=== PATIENT | female | born 1980 | race Caucasian/White ===

== ENCOUNTER 2021-01-08 13:04 | Outpatient (REF) | payer OTHER, SELFPAY | END 2021-01-08 13:05 | disposition home or self-care (01) | LOC: HO.LAB 13:04 | PROVIDERS: Visit Provider Internal Medicine | DX: Z20.822 Contact with and (suspected) exposure to COVID-19 (principal) | CPT/HCPCS: 36415; C9803; U0003; U0005 ==

== ENCOUNTER 2022-04-17 08:40 | Emergency (ER) | payer OTHER, SELFPAY ==
--- NOTE | ~2022-04-17 | CT_ITS ---
CT LUMBAR SPINE WITHOUT CONTRAST CLINICAL INFORMATION: Tender lumbar vertebra. COMPARISON: None available. TECHNIQUE: Multidetector CT acquisition of the lumbar spine is obtained without contrast. This CT examination was performed using dose optimization techniques as appropriate, variously including the following: *Automated exposure control *Adjustment of mA and/or kV according to patient size (this includes techniques or standardized protocols for targeted exams where dose is matched to indication/reason for exam; i.e. extremities or head) *Use of iterative reconstruction technique FINDINGS: Transitional anatomy. 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 5 nonrib-bearing lumbar-type vertebral bodies. There are no acute fractures and there are no acute subluxations. No suspicious intraosseous lesions. Vertebral body heights are maintained. There is moderate disc volume loss at L5-S1 and the remaining disc volumes are preserved. There is skin thickening and there is subcutaneous stranding throughout the dorsal soft tissues of the lumbar spine as well as the partially imaged ventral abdominal/pelvic soft tissues which can be correlated for clinical signs of cellulitis. Imaged lung bases are clear. L1-L2, L2-L3, and L3-L4 disc contours are normal. There is no central canal stenosis and there is no foraminal stenosis at these levels. L4-L5: Small annular disc bulge and mild bilateral facet arthropathy. No central canal stenosis and no foraminal stenosis. L5-S1: Nonspecific haziness within the perineural epidural fat surrounding the traversing right S1 nerve root within the right S1 lateral recess for which a lumbar spine MRI with and without IV contrast would be helpful in further assessment. There is asymmetric soft tissue fullness within the right S1 lateral recess into the difficult to exclude a disc herniation or other pathology in this location. CT/CT lumbar spine wo con IMPRESSION: - Nonspecific haziness within the perineural epidural fat surrounding the traversing right S1 nerve root within the right S1 lateral recess for which a lumbar spine MRI with and without IV contrast would be helpful in further assessment. There is asymmetric soft tissue fullness within the right S1 lateral recess and it would be difficult to exclude a disc herniation or other pathology in this location. - There is skin thickening and there is subcutaneous stranding throughout the dorsal soft tissues of the lumbar spine as well as the partially imaged ventral abdominal/pelvic soft tissues which can be correlated for clinical signs of cellulitis.
--- NOTE | ~2022-04-17 | MR_ITS ---
MR LUMBAR SPINE WITHOUT AND WITH CONTRAST CLINICAL INFORMATION: Follow-up abnormal CT scan results. COMPARISON: Lumbar spine CT 04/17/2022. TECHNIQUE: MRI of the lumbar spine was obtained using routine sequences with and without contrast. Intravenous contrast: 7.5 mL of Gadavist. FINDINGS: Hypoplastic ribs again considered at the lowermost thoracic type vertebral body. 5 nonrib-bearing lumbar-type vertebral bodies. Moderate disc volume loss and disc desiccation at L5-S1. There is no bone marrow edema. There are no acute fractures. There are no suspicious enhancing intraosseous lesions. Dependent subcutaneous edema. Conus terminates at the L1 level. There are no significant extraspinal soft tissue findings. L1-L2: Normal L2-L3: Normal L3-L4: Normal L4-L5: Small annular disc bulge and mild bilateral facet arthropathy. No central canal stenosis and no foraminal stenosis. L5-S1: Better seen on this MRI is a shallow left paracentral disc protrusion associated with an annular fissure that contacts without compressing the traversing left S1 nerve root within the left subarticular zone. The previously seen finding adjacent to the traversing right S1 nerve root on CT corresponds to a few perineural cysts adjacent to the nerve. MR/MR lumbar spine wo/w con IMPRESSION: - Better seen on this MRI is a shallow left paracentral disc protrusion at L5-S1 associated with an annular fissure that contacts without compressing the traversing left S1 nerve root within the left subarticular zone. The previously seen finding adjacent to the traversing right S1 nerve root on the earlier lumbar spine CT corresponds to a few perineural cysts adjacent to the nerve. - Dependent subcutaneous edema.
[2022-04-17 08:52] VITALS: BP 113/66; PULSE 89; RESP 18; TEMP 36.9; O2SAT 97; BMI 25.8
--- NOTE | 2022-04-17 09:11 | ED_ITS ---
HPI - Back Pain/Injury General Chief Complaint: Back Pain/Injury Stated Complaint: back pain Time Seen by Provider: 04/17/22 09:10 Source: patient Mode of arrival: ambulatory Limitations: no limitations History of Present Illness HPI Narrative: 41 female with a past medical history of seasonal allergies, and liposuction done in [place] 2 months ago. Patient has been sleeping on her stomach because of the surgery. Two days ago her back felt weird , and yesterday morning it was hard to get up and get out of bed. Today she has severe back pain in the middle of her low back, and in her rightsided low back. She has had swelling in her low back due to the surgery, and states she feels that the swelling is increased in her low back recently. No trauma, no lifting, no twisting, prior to this back pain. Patient states she does have a history of a pinched nerve in her back and prior back pain. No pain radiating down her legs, no numbness or tingling, no leg weakness, no fevers, no saddle paresthesias, no incontinence of bowel or bladder, no urinary retention, no history of IV drug use or cancer. Patient's last menstrual period was April 08. No dysuria, hematuria, urinary frequency urgency Patient is using a lidocaine patch, but it is not helping patient states the liposuction was 360 around her abdomen and back MD elicited complaint: back pain Pertinent past history: prior back pain Onset (ago): day(s) (2) Timing: constant Severity: severe Similar Symptoms Previously: No Quality: sharp Location: lumbar spine and right lower back Radiation: none Exacerbating factors: movement and walking Relieving factors: none Treatments prior to arrival: other (lidocaine patch) Work related injury: No Related Data Previous Rx's Medication Instructions Recorded cyclobenzaprine 5 mg tablet 5 mg PO TID PRN muscle spasm #15 04/17/22 tabs ketorolac 10 mg tablet 10 mg PO Q6H 5 days #20 tabs 04/17/22 Allergies Allergy/AdvReac Type Severity Reaction Status Date / Time aspirin [ASPIRIN] Allergy Unknown FACIAL Unverified 07/25/20 16:23 SWELLING Review of Systems Constitutional: Constitutional: Denies body ache(s), Denies chills, Denies fatigue, Denies fever(s), Denies malaise and Denies weakness Eyes: Eyes: Denies diplopia Cardiovascular: Cardiovascular: Denies chest pain, Denies syncope, Denies leg edema, Denies lightheadedness, Denies Loss of Consciousness, Denies palpitations and Denies dyspnea Respiratory: Respiratory: Denies chest congestion, Denies cough and Denies dyspnea Gastrointestinal: Gastrointestinal: Denies abdominal pain, Denies hematochezia, Denies constipation, Denies fecal incontinence, Denies diarrhea, Denies nausea and Denies vomiting Genitourinary: Genitourinary: Denies hematuria, Denies urinary frequency, Denies difficulty voiding, Denies dysuria, Denies pelvic pain, Denies flank pain, Denies urinary incontinence, Denies vaginal discharge and Denies vaginal odor Musculoskeletal: Musculoskeletal: Reports back pain, Denies muscle weakness, Denies numbness and Denies tingling Integumentary/Breasts: Skin/Breast: Denies rash and Denies wounds Neurologic: Denies confusion, Denies syncope, Denies numbness, Denies Sensory deficit (Neuro), Denies tingling and Denies weakness Psychiatric: Psychiatric: Denies anxiety, Denies confusion and Denies depression Endocrine: Endocrine: Denies fatigue and Denies palpitations [facility] Past Medical History [facility] Narrative: environmental allergies liposuction Social History Social History Advance Directives: No Advance Directives Information Provided: No Physical Exam Vital Signs: Vital Signs: Last Vital Signs Temp 97.9 F 04/17/22 14:51 Pulse 82 04/17/22 14:51 Resp 16 04/17/22 14:51 BP 102/58 L 04/17/22 14:51 Pulse Ox 99 04/17/22 14:51 O2 Del Method 04/17/22 14:51 BMI result Body Mass Index 25.8 Const: General: No confusion Nutritional Appearance: well nourished Orientation/consciousness: patient oriented x3 and No confusion Limitations: no limitations Eyes: Conjunctivae: conjunctivae normal Pupils: Equal, round and reactive pupils present EOM: EOMs intact bilaterally Neck: Neck: Yes full ROM, Yes no lymphadenopathy and Yes supple Resp: Effort & Inspection: normal respiratory effort and able to speak in complete sentences Auscultation: clear to auscultation bilaterally, no crackles, no rales, no rhonchi and no wheezes Cardio: Rate: regular rate Rhythm: regular rhythm Heart sounds: S1 normal heart sound present and S2 normal heart sound present GI: Inspection: Yes normal to inspection Palpation (GI): Soft to palpation, nontender, no guarding and not rigid Percussion: Yes normal to percussion Auscultation: normal bowel sounds : General: Yes no CVA tenderness Back/Spine/Pelvis: Back: no CVA tenderness Cervical Spine: normal cervical lordosis, cervical ROM normal, No Cervical spine tenderness and No step off deformity Thoracic/Lumbar Spine: No thoracic spinal tenderness, lumbar spinal tenderness at L2, at L3 and at L4 and straight leg raise positive (L>R) Pelvis: no pain with anterior-posterior compression, no buttock tenderness and no buttock swelling Skin: Other: no ecchymosis or swelling appreciated General skin exam: no rashes or lesions noted Neuro: General: patient oriented x3, tone normal, moves all extremities, no focal motor deficits, deep tendon reflexes 2+ bilaterally and No confusion Cranial nerves: Yes Equal, round and reactive pupils present Sensory Exam: No Sensory deficit (Neuro) Deep tendon reflexes (DTR's): Right patellar reflex intensity grade: 1+ and Left patellar reflex intensity grade: 1+ Extrem: Right lower extremity: normal to inspection, full ROM and normal capillary refill Left lower extremity: normal to inspection, full ROM and normal capillary refill Psych: Appearance: grossly normal Affect: normal affect Attitude: cooperative Thought process: Normal thought process present Course Course Course Narrative: 61-year-old female with past medical history of liposuction in her abdomen and back done 2 months ago, presents with severe low back pain that started 2 days ago. Patient has had back pain in the past, and she has been sleeping on her abdomen as she has been instructed to do due to the surgery. On exam, patient is well-appearing, stable vitals, patient is tender over her lumbar vertebrae, tender on her right lumbar soft tissue, she has a positive straight leg raise, left greater than right patient has no red flag symptoms, she has a stiff gait due to pain, she has intact lower extremity strength, pulses, sensation, and patellar DTRs there is no redness, swelling, or warmth on patient's low back will get CT of lumbar spine to evaluate soft tissue, as patient is reporting increased swelling even though on my exam I do not appreciate any increased swelling, however she is tender over her lumbar spine Patient is allergic to aspirin, but as tolerated ibuprofen, will treat pain with ketorolac and Flexeril while we are awaiting CT results Reevaluation(s) Reevaluation #1: urine is negative, no hematuria, patient has high specific gravity, not CT/CT lumbar spine wo con IMPRESSION: - Nonspecific haziness within the perineural epidural fat surrounding the traversing right S1 nerve root within the right S1 lateral recess for which a lumbar spine MRI with and without IV contrast would be helpful in further assessment. There is asymmetric soft tissue fullness within the right S1 lateral recess and it would be difficult to exclude a disc herniation or other pathology in this location. ? - There is skin thickening and there is subcutaneous stranding throughout the dorsal soft tissues of the lumbar spine as well as the partially imaged ventral abdominal/pelvic soft tissues which can be correlated for clinical signs of cellulitis. given CT reading of nonspecific haziness in the perineural epidural fat surrounding the right S1 nerve root and right S1 lateral recess with asymmetric soft tissue fullness in right S1 lateral recess, question abscess versus disc herniation. Discussed with Dr Dominguez, will order an MR with and without contrast, will get labs and ESR. CT scan also mentions skin thickening and subcutaneous stranding throughout dorsal soft tissues of lumbar spine and the partially imaged ventral abdominal soft tissues. No signs of cellulitis on patient's abdomen or back, no redness, swelling, warmth, I assume this skin thickening and subcutaneous stranding is due to prior liposuction 360 Reevaluation #2: patient is COVID negative, labs are unremarkable, ESR is 2. Awaiting MRI MR/MR lumbar spine wo/w con IMPRESSION: - Better seen on this MRI is a shallow left paracentral disc protrusion at L5-S1 associated with an annular fissure that contacts without compressing the traversing left S1 nerve root within the left subarticular zone. The previously seen finding adjacent to the traversing right S1 nerve root on the earlier lumbar spine CT corresponds to a few perineural cysts adjacent to the nerve. - Dependent subcutaneous edema. MRI shows no abscess. Shows left disc protrusion and perineural cysts will treat back pain with Flexeril and ketorolac, have patient follow-up with [facility] medicine counseled patient to return to emergency room if she had sudden leg weakness, saddle paresthesias, incontinence of bowel or bladder, urinary retention, or fevers MDM - Back Pain/Injury Lab Data Result diagrams: 04/17/22 11:47 04/17/22 11:47 Labs: Lab Results 04/17/22 04/17/22 04/17/22 Range/Units 09:48 09:48 11:47 WBC 5.4 (4.8-10.8) X10*3/uL RBC 5.05 (4.20-5.50) X10*6/uL Hgb 14.7 (12.0-16.0) g/dl Hct 46.3 (37.0-47.0) % MCV 91.7 (80.0-98.0) fL MCH 29.1 (27.0-33.0) pg MCHC 31.7 (31.0-35.0) g/dl RDW 13.1 (11.0-16.0) % Plt Count 211 (160-400) X10*3/uL MPV 11.4 (9.4-12.3) fL Immature Gran % (Auto) 0.2 (0.0-0.4) % Neut % (Auto) 58.1 (45-73) % Lymph % (Auto) 29.9 (20-40) % Highland % (Auto) 6.2 (2-11) % Eos % (Auto) 4.9 H (0-4) % Baso % (Auto) 0.7 (0-2) % Lymph # (Auto) 1.6 (1.2-4.9) X10*3/uL [place] # (Auto) 0.3 (0.1-1.2) X10*3/uL Eos # (Auto) 0.3 (0.0-0.4) X10*3/uL Baso # (Auto) 0.0 (0.0-0.2) X10*3/uL Abs Immat Gran (auto) 0.01 (0.00-0.03) X10*3/uL Absolute Neuts (auto) 3.1 (2.0-8.3) x10*3/uL Absolute Nucleated RBC 0.000 (0.0-0.012) X10*3/uL Nucleated RBC % (auto) 0.0 (0.0-0.2) /100WBC ESR (0-20) MM/HR Sodium (135-145) mmol/L Potassium (3.3-5.1) mmol/L Chloride (96-108) mmol/L Carbon Dioxide (22-29) mmol/L Anion Gap (12-20) BUN (9-16) mg/dL Creatinine (0.5-1.4) mg/dL Estim Creat Clear Calc Estimated GFR Random Glucose (60-115) mg/dL Calcium (8.4-10.2) mg/dL Total Bilirubin (0.0-1.0) mg/dL AST (5-31) U/L ALT (0-31) U/L Alkaline Phosphatase (39-117) U/L Total Protein (6.5-8.0) g/dL Albumin (3.5-5.0) g/dL Urine Color YELLOW Urine Appearance HAZY Urine pH 5.5 (5.0-8.0) Ur Specific [place] >= 1.030 H (1.005-1.025) Urine Protein NEG (NEG-TRACE) MG/DL Urine Glucose (UA) NEG (NEG) MG/DL Urine Ketones 5 (NEG) MG/DL Urine Blood TRACE (NEG) Urine Nitrite NEG (NEG) Ur Leukocyte Esterase NEG (NEG) Urine RBC 1-4 (0) /HPF Urine WBC 0-2 (0-4) /HPF Ur Squamous Epith Cells 4+ /LPF Amorphous Sediment 2+ /LPF Urine Bacteria TRACE /LPF Urine Test NEGATIVE (NEGATIVE) COVID-19 (JACKY) (Negative) COVID-19 Clin Com 04/17/22 04/17/22 04/17/22 Range/Units 11:47 11:47 12:30 WBC (4.8-10.8) X10*3/uL RBC (4.20-5.50) X10*6/uL Hgb (12.0-16.0) g/dl Hct (37.0-47.0) % MCV (80.0-98.0) fL MCH (27.0-33.0) pg MCHC (31.0-35.0) g/dl RDW (11.0-16.0) % Plt Count (160-400) X10*3/uL MPV (9.4-12.3) fL Immature Gran % (Auto) (0.0-0.4) % Neut % (Auto) (45-73) % Lymph % (Auto) (20-40) % [place]land % (Auto) (2-11) % Eos % (Auto) (0-4) % Baso % (Auto) (0-2) % Lymph # (Auto) (1.2-4.9) X10*3/uL [place] # (Auto) (0.1-1.2) X10*3/uL Eos # (Auto) (0.0-0.4) X10*3/uL Baso # (Auto) (0.0-0.2) X10*3/uL Abs Immat Gran (auto) (0.00-0.03) X10*3/uL Absolute Neuts (auto) (2.0-8.3) x10*3/uL Absolute Nucleated RBC (0.0-0.012) X10*3/uL Nucleated RBC % (auto) (0.0-0.2) /100WBC ESR 2 (0-20) MM/HR Sodium 140 (135-145) mmol/L Potassium 4.0 (3.3-5.1) mmol/L Chloride 104 (96-108) mmol/L Carbon Dioxide 26 (22-29) mmol/L Anion Gap 14 (12-20) BUN 8 L (9-16) mg/dL Creatinine 1.00 (0.5-1.4) mg/dL Estim Creat Clear Calc 77.0 Estimated GFR > 60 Random Glucose 84 (60-115) mg/dL Calcium 9.5 (8.4-10.2) mg/dL Total Bilirubin 0.6 (0.0-1.0) mg/dL AST 17 (5-31) U/L ALT 13 (0-31) U/L Alkaline Phosphatase 55 (39-117) U/L Total Protein 7.6 (6.5-8.0) g/dL Albumin 4.5 (3.5-5.0) g/dL Urine Color Urine Appearance Urine pH (5.0-8.0) Ur Specific [place]on (1.005-1.025) Urine Protein (NEG-TRACE) MG/DL Urine Glucose (UA) (NEG) MG/DL Urine Ketones (NEG) MG/DL Urine Blood (NEG) Urine Nitrite (NEG) Ur Leukocyte Esterase (NEG) Urine RBC (0) /HPF Urine WBC (0-4) /HPF Ur Squamous Epith Cells /LPF Amorphous Sediment /LPF Urine Bacteria /LPF Urine Test (NEGATIVE) COVID-19 (JACKY) Negative (Negative) COVID-19 Clin Com See Note Discharge Plan Discharge Clinical Impression: Lumbar disc herniation, Perineural cysts Patient Disposition: Home, Self-Care Instructions: Lumbar Disc Herniation (ED), Lower Back Exercises (ED) Additional Instructions: Please call [facility] in [place] at [address] [place] [address] at [phone]. PLease tell them you had an MRI today that showed herniated disc and perineural cysts in your spine. please return to emergency room immediately if you have sudden leg weakness, numbness or tingling in your groin, if your incontinent of bowel or bladder, if you cannot empty her bladder, if you have fevers, or any other new or concerning symptoms have prescribed a muscle relaxant and ketorolac to your pharmacy, do not take any ibuprofen containing products while you are taking the ketorolac Prescriptions: New ketorolac 10 mg tablet 10 mg PO Q6H 5 Days Qty: 20 0RF cyclobenzaprine 5 mg tablet 5 mg PO TID PRN (Reason: muscle spasm) Qty: 15 0RF
[2022-04-17] MEDS: Ketorolac Tromethamine 30 MG/ML VIAL IM (09:53)
[2022-04-17] MEDS: Cyclobenzaprine HCl 10 MG TABLET PO (09:53)
[2022-04-17 09:59] LABS: Appearance Urine HAZY; Color Urine YELLOW; Glucose Urine UA NEG (NEG); Leukocyte Esterase Urine NEG (NEG); Nitrite Urine NEG (NEG); PH 5.5 (5.0-8.0); Specific Gravity - Urine >= 1.030 (1.005-1.025); UACC Culture Trigger NO; UPreg QC Valid YES; Urine Blood TRACE (NEG); Urine Ketones 5 MG/DL (NEG); Urine Pregnancy NEGATIVE (NEGATIVE); Urine Protein NEG (NEG-TRACE)
[2022-04-17 10:06] LABS: Amorphous Sediment Urine 2+ /LPF; Squamous Epithelial Cell Urine 4+ /LPF
[2022-04-17 10:07] LABS: Bacteria Urine TRACE /LPF; WBC Urine 0-2 /HPF (0-4)
[2022-04-17 11:51] LABS: MANUAL DIFF FLAG NO
[2022-04-17 12:00] VITALS: BP 110/81; PULSE 74; RESP 16; TEMP 36.6; O2SAT 99
[2022-04-17 12:04] LABS: Basophils Percent Auto 0.7 % (0-2); Eosinophils Absolute Auto 0.3 X10*3/uL (0.0-0.4); Eosinophils Percent Auto 4.9 % (0-4); Hematocrit 46.3 % (37.0-47.0); Hemoglobin 14.7 g/dl (12.0-16.0); Imm Gran Abs Auto 0.01 X10*3/uL (0.00-0.03); Imm Gran Pct Auto 0.2 % (0.0-0.4); Lymphocytes Absolute Auto 1.6 X10*3/uL (1.2-4.9); Lymphocytes Percent Auto 29.9 % (20-40); Mean Corpuscular HGB Conc 31.7 g/dl (31.0-35.0); Mean Corpuscular Hemoglobin 29.1 pg (27.0-33.0); Mean Corpuscular Volume 91.7 fL (80.0-98.0); Mean Platelet Volume 11.4 fL (9.4-12.3); Monocytes Absolute Auto 0.3 X10*3/uL (0.1-1.2); Monocytes Percent Auto 6.2 % (2-11); Neutrophils Absolute Auto 3.1 x10*3/uL (2.0-8.3); Neutrophils Percent Auto 58.1 % (45-73); Platelet Count 211 X10*3/uL (160-400); Red Blood Count 5.05 X10*6/uL (4.20-5.50); Red Cell Distribution Width 13.1 % (11.0-16.0); White Blood Count 5.4 X10*3/uL (4.8-10.8)
[2022-04-17] MEDS: 0.9 % Sodium Chloride 1,000 ML 999 ML IV (12:06)
[2022-04-17 12:07] LABS: Alanine Aminotransferase 13 U/L (0-31); Albumin Level 4.5 g/dL (3.5-5.0); Alkaline Phosphatase 55 U/L (39-117); Anion Gap 14 (12-20); Aspartate Amino Transferase 17 U/L (5-31); Bilirubin Total 0.6 mg/dL (0.0-1.0); Blood Urea Nitrogen 8 mg/dL (9-16); Calcium 9.5 mg/dL (8.4-10.2); Carbon Dioxide 26 mmol/L (22-29); Chloride 104 mmol/L (96-108); Estimated Glomerular Filt Rate > 60; Glucose Random 84 mg/dL (60-115); Sodium 140 mmol/L (135-145); Total Protein 7.6 g/dL (6.5-8.0)
[2022-04-17 12:56] LABS: IDNOW Serial# 16C4AD1C
[2022-04-17 12:57] LABS: COVID-19 Test Negative (Negative)
[2022-04-17 13:18] LABS: Erythrocyte Sedimentation Rate 2 MM/HR (0-20)
[2022-04-17 14:51] VITALS: BP 102/58; PULSE 82; RESP 16; TEMP 36.6; O2SAT 99
== END 2022-04-17 15:11 | disposition home or self-care (01) ==
PROVIDERS: Physician Assistant; Emergency Provider Emergency Medicine
DX: M51.26 Other intervertebral disc displacement, lumbar region (principal); G96.191 Perineural cyst; Z20.822 Contact with and (suspected) exposure to COVID-19
CPT/HCPCS: 36415; 72131; 72158; 80053; 81001; 81003; 81025; 85025; 85652; 87635; 96361; 96372; 96374; 99284; 99285; A9585; J1885